=== PATIENT | male | born 1970 | race Caucasian/White ===

== ENCOUNTER 2021-01-26 08:59 | Observation (INO) | payer BC ==
[2021-01-23 15:08] LABS: BASOPHILS % 0.3 % (0.0-1.0); EOSINOPHILS # (AUTO) 0.1 (0.0-0.4); EOSINOPHILS % 0.6 % (0.0-6.0); HEMOGLOBIN 15.9 g/dL (14.0-18.0); LYMPHOCYTES # (AUTO) 1.8 (1.0-3.2); LYMPHOCYTES % 20.4 % (18.0-39.1); MEAN CORPUSCULAR HEMOGLOBIN 28.9 pg (28-32); MEAN CORPUSCULAR HGB CONC 35.3 g/dL (31-35); MEAN CORPUSCULAR VOLUME 81.7 fL (81-99); MONOCYTES # (AUTO) 0.5 (0.2-0.8); MONOCYTES % 5.4 % (4.4-11.3); NEUTROPHILS # (AUTO) 6.4 (2.1-6.9); NEUTROPHILS % 72.8 % (38.7-80.0); PLATELET COUNT 275 x10e3/uL (140-360); RED BLOOD COUNT 5.51 x10e6/uL (4.3-5.7); RED CELL DISTRIBUTION WIDTH 13.7 % (11.7-14.4)
[2021-01-23 15:23] LABS: INR 0.9; PROTHROMBIN TIME 12.7 seconds (11.9-14.5)
[2021-01-23 15:24] LABS: PARTIAL THROMBOPLASTIN TIME 30.9 seconds (23.8-35.5)
[2021-01-23 15:28] LABS: ANION GAP 12.9 mmol/L (8-16); CALCIUM 8.3 mg/dL (8.4-10.2); CREATININE, SERUM 0.79 mg/dL (0.72-1.25); POTASSIUM 3.9 mmol/L (3.5-5.1)
[~2021-01-26 08:59] MED LIST: ACETAMINOPHEN 1000 MG/100 ML 100 ML IV ONE; CARBINOXAMINE MA4 MG PO; CYCLOBENZAPRINE10 MG PO; DOXYCYCLINE HY100 MG PO; GABAPENTIN300 MG PO; HYDROCHLOROTHIA25 MG PO; IBUPROFEN 800MG/ 200ML 200 ML IV ONE; LIDOCAINE HCL (LTA) 4 ML SOLN ONE; LISINOPRIL10 MG PO; METHOCARBAMOL750 MG PO; METOPROLOL TART25 MG PO; NAPROXEN250 MG PO; NORCO 7.5-3251 EACH PO; TYLENOL # 31 EA PO
[2021-01-26] MEDS ORDERED: LIDOCAINE 1% W/EPINEPHRINE 20 ML VIAL ONE (09:05)
[2021-01-26] MEDS ORDERED: Vancomycin IV 1 GM VIAL ONE (09:05)
[2021-01-26] MEDS ORDERED: THROMBIN FOR SOLN 5,000 UNIT VIAL ONE (09:05)
[2021-01-26] MEDS ORDERED: FENTANYL CITRATE/PF 100MCG/2 ML INJ ONE ×2 (11:31→13:20)
[2021-01-26] MEDS ORDERED: MIDAZOLAM HCL 2 MG/2 ML VIAL ONE (11:31)
[2021-01-26] MEDS ORDERED: SUGAMMADEX SODIUM 200 MG/2 ML VIAL IV ONE (12:17)
[2021-01-26] MEDS ORDERED: HYDROCODON-ACE1 EA12 PO (12:28)
[2021-01-26] MEDS ORDERED: LACTATED RINGER'S 1,000 ML IV SCH (12:30)
[2021-01-26] MEDS ORDERED: CYCLOBENZAPRINE HCL 10 MG TAB PO PRN (12:30)
[2021-01-26] MEDS ORDERED: HYDROMORPHONE 2MG/ML 2 MG/ML ML IV PRN (12:30)
[2021-01-26] MEDS ORDERED: OXYCODONE/ACETAMINOPHEN 5-325 1 EACH TABLET PO PRN (12:30)
[2021-01-26] MEDS ORDERED: CARISOPRODOL 350 MG TAB PO PRN (12:30)
[2021-01-26] MEDS ORDERED: ACETAMINOPHEN 325 MG TAB PO PRN (12:30)
[2021-01-26] MEDS ORDERED: MORPHINE SULFATE 5 MG/ML VIAL IM PRN (12:30)
[2021-01-26] MEDS ORDERED: MAGNESIUM/ALUMINUM/SIMETHICONE 30 ML UDC PO PRN (12:30)
[2021-01-26] MEDS ORDERED: ONDANSETRON HCL INJ 2MG/ML 2ML 2 MG/ML VIAL IV PRN (12:30)
[2021-01-26] MEDS ORDERED: PROMETHAZINE HCL (IM) 25 MG/ML VIAL IM PRN (12:30)
[2021-01-26] MEDS ORDERED: ROCURONIUM BROMIDE 10 MG/ML 5ML VIAL IV ONE (13:21)
[2021-01-26] MEDS ORDERED: ONDANSETRON HCL INJ 2MG/ML 2ML 2 MG/ML VIAL ONE (13:21)
[2021-01-26] MEDS ORDERED: PROPOFOL IV EMULSION 10 MG/ML 20 ML VIAL ONE (13:21)
[2021-01-26] MEDS ORDERED: POVIDONE IODINE 0.05% 0.05 % ML PO ONE (13:21)
[2021-01-26] MEDS ORDERED: NEOSTIGMINE 1 MG/ML 10ML VIAL ONE (13:21)
[2021-01-26] MEDS ORDERED: DEXAMETHASONE SOD PHOS INJ 4 MG/ML VIAL ONE (13:21)
[2021-01-26] MEDS ORDERED: LIDOCAINE HCL 2% JELLY 5 ML TUBE ONE (13:21)
[2021-01-26] MEDS ORDERED: GLYCOPYRROLATE INJ 0.2 MG/ML VIAL ONE (13:21)
[2021-01-26] MEDS ORDERED: LIDOCAINE HCL 2% LOCAL INJ 5 ML SDV VIAL INJ ONE (13:21)
[2021-01-26] MEDS ORDERED: SEVOFLURANE INHAL SOLN 250 ML PEN BTL ONE (13:21)
[2021-01-26] MEDS ORDERED: GABAPENTIN 300 MG CAP PO SCH (15:00)
[2021-01-26 17:00] VITALS: BP 124/80
[2021-01-26] MEDS ORDERED: Cefazolin 1 GM in SODIUM CHLORIDE 0.9% 50ML 50 ML IV SCH (20:00)
[2021-01-26] MEDS ORDERED: ZOLPIDEM TARTRATE 5 MG TAB PO PRN (21:00)
[2021-01-27] MEDS ORDERED: LISINOPRIL 10 MG TAB PO SCH (09:00)
== END 2021-01-26 18:27 | disposition home or self-care (01) ==
LOC: OR 08:59 → PACU V 12:26 → MED/SURG 17:03
PROVIDERS: ADMIT Neurological Surgery; ATTEND Neurological Surgery
DX: M51.16 Intervertebral disc disorders with radiculopathy, lumbar region (principal); I10 Essential (primary) hypertension; E66.9 Obesity, unspecified; Z68.28 Body mass index [BMI] 28.0-28.9, adult; K21.9 Gastro-esophageal reflux disease without esophagitis; I25.2 Old myocardial infarction; Z87.442 Personal history of urinary calculi; Z01.810 Encounter for preprocedural cardiovascular examination; Z01.818 Encounter for other preprocedural examination; Z20.822 Contact with and (suspected) exposure to COVID-19
CPT/HCPCS: 36415; 63047; 71046; 72020; 80048; 85025; 85610; 85730; 86850 ×2; 86900 ×2; 88304; 88311; 93005; G0378; J0131; J0690; J1100; J2001 ×2; J2405; J2704; J2710; J3010; J3370; U0002; J2250

== ENCOUNTER → 2022-06-22 | Day surgery (SDC) | payer BC ==
[~2022-06-22] MED LIST changes: -ACETAMINOPHEN 1000 MG/100 ML 100 ML IV ONE; +AMBIEN5 MG PO; +CIALIS2.5 MG; +HYDROCODON-ACE1 EA12 PO; +HYOSCYAMINE SULFATE 0.5 MG/ML INJ ONE; -IBUPROFEN 800MG/ 200ML 200 ML IV ONE; -LIDOCAINE HCL (LTA) 4 ML SOLN ONE; +LIDOCAINE HCL 2% LOCAL INJ 5 ML SDV VIAL INJ ONE; +MIDAZOLAM HCL 2 MG/2 ML VIAL ONE; +PROPOFOL IV EMULSION 10 MG/ML 20 ML VIAL ONE; +TESTOSTERONE SHOT
[2022-06-22 11:05] VITALS: BP 127/94
== END | disposition home or self-care (01) ==
LOC: OR 07:27
PROVIDERS: ATTEND Internal Medicine Gastroenterology
DX: Z12.11 Encounter for screening for malignant neoplasm of colon (principal); D12.2 Benign neoplasm of ascending colon; D12.4 Benign neoplasm of descending colon; D12.5 Benign neoplasm of sigmoid colon; K62.1 Rectal polyp; K57.30 Diverticulosis of large intestine without perforation or abscess without bleeding; K64.8 Other hemorrhoids; R19.7 Diarrhea, unspecified; R10.32 Left lower quadrant pain; R11.2 Nausea with vomiting, unspecified; Z71.3 Dietary counseling and surveillance; I10 Essential (primary) hypertension; Z01.810 Encounter for preprocedural cardiovascular examination; Z79.899 Other long term (current) drug therapy; Z68.30 Body mass index [BMI] 30.0-30.9, adult; Z87.442 Personal history of urinary calculi; Z86.16 Personal history of COVID-19
CPT/HCPCS: 45380; 45385; 93005; J1980; J2001; J2250; J2704; 45378